=== PATIENT | male | born 1950 | race Caucasian/White ===

== ENCOUNTER 2021-06-19 14:59 | Inpatient (IN) ==
[2021-06-19 15:18] LABS: BORDETELLA PARAPERTUSSIS (PCR) NOT DETECTED (NOT DETECT); BORDETELLA PERTUSSIS (PCR) NOT DETECTED (NOT DETECT); CHLAMYDIA PNEUMONIAE (PCR) NOT DETECTED (NOT DETECT); CORONAVIRUS 229E (PCR) NOT DETECTED (NOT DETECT); CORONAVIRUS HKU1 (PCR) NOT DETECTED (NOT DETECT); CORONAVIRUS NL63 (PCR) NOT DETECTED (NOT DETECT); CORONAVIRUS OC43 (PCR) NOT DETECTED (NOT DETECT); HUMAN METAPNEUMOVIRUS (PCR) NOT DETECTED (NOT DETECT); HUMAN RHINOVIRUS/ENTEROV (PCR) NOT DETECTED (NOT DETECT); INFLUENZA B (PCR) NOT DETECTED (NOT DETECT); MYCOPLASMA PNEUMONIAE (PCR) NOT DETECTED (NOT DETECT); PARAINFLUENZA VIRUS 1 (PCR) NOT DETECTED (NOT DETECT); PARAINFLUENZA VIRUS 2 (PCR) NOT DETECTED (NOT DETECT); PARAINFLUENZA VIRUS 3 (PCR) NOT DETECTED (NOT DETECT); PARAINFLUENZA VIRUS 4 (PCR) NOT DETECTED (NOT DETECT); RESPIRATORY SYNCYTIAL V (PCR) NOT DETECTED (NOT DETECT); SARS_COV_2 (PCR) NOT DETECTED (NOT DETECT)
[2021-06-19 16:11] LABS: ADENOVIRUS (PCR) NOT DETECTED (NOT DETECT)
[2021-06-19] MEDS ORDERED: TYLENOL PO PRN (16:44)
[2021-06-19] MEDS ORDERED: ATROPINE SULFATE PFS IVP PRN (16:44)
[2021-06-19] MEDS ORDERED: NITROSTAT SL PRN (16:44)
[2021-06-19 16:48] VITALS: BMI 23.8
[2021-06-19] MEDS ORDERED: LANOXIN IVP ONE ×2 (16:53→19:00)
[2021-06-19] MEDS ORDERED: ULTRAM PO PRN (17:01)
[2021-06-19] MEDS ORDERED: CARDIZEM PO ONE (17:01)
[2021-06-19] MEDS ORDERED: LOPRESSOR PO ONE (17:02)
[2021-06-19 17:18] LABS: BASOPHILS % (AUTO) 0.4 % (0.0-3.0); EOSINOPHILS # (AUTO) 0.3 K/ul (0.0-0.7); EOSINOPHILS % (AUTO) 5.3 % (0.0-7.0); HEMATOCRIT 41.3 % (42.0-52.0); HEMOGLOBIN 13.9 g/dl (14.0-18.0); IMMATURE GRANULOCYTE % (AUTO) 0.4 % (0.0-5.0); LYMPHOCYTES # (AUTO) 1.6 K/uL (0.60-3.4); LYMPHOCYTES % (AUTO) 29.5 (10.0-50.0); MEAN CORPUSCULAR HEMOGLOBIN 31.4 pg (27.0-31.0); MEAN CORPUSCULAR HGB CONC 33.7 (31.8-35.4); MEAN CORPUSCULAR VOLUME 93.4 fl (80.0-94.0); MONOCYTES # (AUTO) 0.5 K/uL (0.4-2.0); MONOCYTES % (AUTO) 8.6 (0-10); NEUTROPHILS # (AUTO) 2.9 K/ul (2.0-6.9); NEUTROPHILS % (AUTO) 55.8 % (42.2-75.2); PLATELET COUNT 172 10^3/uL (140-440); RDW COEFFICIENT OF VARIATION 12.8 % (11.6-14.8); RED BLOOD COUNT 4.42 10^6/ul (4.70-6.10); WHITE BLOOD COUNT 5.26 K/ul (4.2-10.2)
[2021-06-19 17:24] LABS: ALANINE AMINOTRANSFERASE 13.4 U/L (0-50); ALBUMIN 4.72 g/dL (3.5-5.0); ALKALINE PHOSPHATASE 66.1 U/L (56-119); ASPARTATE AMINO TRANSFERASE 27.6 U/L (17-59); BILIRUBIN,TOTAL 0.44 mg/dL (0.2-1.3); BLOOD UREA NITROGEN 13.4 mg/dL (9-20); CALCIUM 9.1 mg/dL (8.4-10.2); CARBON DIOXIDE 27.3 mmol/L (22-30.0); CHLORIDE 104.5 mmol/L (98-107); CREATININE 1.09 mg/dL (0.60-1.10); GLUCOSE 94.8 mg/dL (74-106); POTASSIUM 4.14 mmol/L (3.5-5.1); SODIUM 139.9 mmol/L (134.5-145); TOTAL PROTEIN 7.54 g/dL (6.3-8.2)
[2021-06-19 17:33] LABS: CREATINE KINASE 51.6 U/L (55-170)
[2021-06-19 17:49] LABS: BILIRUBIN,URINE Negative (NEGATIVE); CLARITY,URINE Cloudy (CLEAR); COLOR,URINE Yellow (YELLOW); GLUCOSE, URINE (UA) Negative (NEGATIVE); KETONES,URINE Negative (NEGATIVE); LEUKOCYTE ESTERASE ,URINE Trace (NEGATIVE); NITRITE,URINE Negative (NEGATIVE); PROTEIN,URINE 1+ (NEGATIVE); URINE, BLOOD 2+ (NEGATIVE); UROBILINOGEN,URINE 0.2 (0.2)
[2021-06-19 17:56] LABS: BACTERIA,URINE TRACE (NOT PRESENT); MUCUS,URINE TRACE (NOT PRESENT); SQUAMOUS EPITHELIAL CELL,UR 0-2 (0-5); URINE RBC, MICROSCOPIC 30-50 (0-2)
[2021-06-19 17:57] LABS: TROPONIN I < 0.012 ng/ml (0.0000-0.120)
--- NOTE | 2021-06-19 20:08 | DI ---
EXAM: Chest one-view History: Short of breath Comparison: None. FINDINGS: Portable AP image obtained lordotic projection. Cardiac silhouette is normal size. There is linear and minimal interstitial density left lung base. No pleural fluid. No acute finding invo lving skeletal structures. Impression Cardiac silhouette normal size Linear and interstitial density the left lower lobe suggesting atelectasis and possible mild intersti tial pneumonia
[2021-06-19] MEDS: ATIVAN PO SCH (20:31)
[2021-06-19] MEDS: CARDIZEM PO SCH (20:31)
[2021-06-19] MEDS: ZOCOR PO SCH (20:31)
[2021-06-19] MEDS: ELIQUIS PO SCH (20:31)
[2021-06-19] MEDS: LOPRESSOR PO SCH (20:50)
[2021-06-20 01:34] LABS: CREATINE KINASE 41.2 U/L (55-170)
[2021-06-20 01:47] LABS: TROPONIN I < 0.012 ng/ml (0.0000-0.120)
[2021-06-20 04:53] LABS: BASOPHILS % (AUTO) 0.7 % (0.0-3.0); EOSINOPHILS # (AUTO) 0.3 K/ul (0.0-0.7); EOSINOPHILS % (AUTO) 7.7 % (0.0-7.0); HEMATOCRIT 38.8 % (42.0-52.0); HEMOGLOBIN 13.2 g/dl (14.0-18.0); IMMATURE GRANULOCYTE % (AUTO) 0.2 % (0.0-5.0); LYMPHOCYTES # (AUTO) 1.7 K/uL (0.60-3.4); LYMPHOCYTES % (AUTO) 39.3 (10.0-50.0); MEAN CORPUSCULAR HEMOGLOBIN 31.7 pg (27.0-31.0); MONOCYTES # (AUTO) 0.4 K/uL (0.4-2.0); NEUTROPHILS # (AUTO) 1.9 K/ul (2.0-6.9); NEUTROPHILS % (AUTO) 44.1 % (42.2-75.2); PLATELET COUNT 151 10^3/uL (140-440); RED BLOOD COUNT 4.17 10^6/ul (4.70-6.10)
[2021-06-20 05:16] LABS: ALANINE AMINOTRANSFERASE 13.3 U/L (0-50); ALBUMIN 3.93 g/dL (3.5-5.0); BILIRUBIN,TOTAL 0.39 mg/dL (0.2-1.3); BLOOD UREA NITROGEN 14.3 mg/dL (9-20); CALCIUM 8.65 mg/dL (8.4-10.2); CARBON DIOXIDE 22.9 mmol/L (22-30.0); CHLORIDE 108.2 mmol/L (98-107); CREATININE 0.99 mg/dL (0.60-1.10); POTASSIUM 4.24 mmol/L (3.5-5.1); SODIUM 139.2 mmol/L (134.5-145); TOTAL PROTEIN 6.44 g/dL (6.3-8.2)
[2021-06-20] MEDS: CARDIZEM PO SCH ×3 (09:12→20:30)
[2021-06-20] MEDS: LOPRESSOR PO SCH ×2 (09:12→20:29)
[2021-06-20] MEDS: OMNICEF PO SCH ×2 (09:12→20:30)
[2021-06-20] MEDS: OMEGA-3 FISH OIL PO SCH (09:17)
[2021-06-20] MEDS: ELIQUIS PO SCH ×2 (09:20→20:30)
--- NOTE | 2021-06-20 09:34 | PCM.PROG ---
Attending Provider: ATTENDING PROVIDER: Dr. DOLORES REYNOLDS DATE OF SERVICE: 06/20/21 SUBJECTIVE: This 71 year old /WHITE M was hospitalized 06/19/21 with atrial flutter/fib with RVR going on for several weeks symptomatic given Cardizem with no response and hospitalized. REVIEW OF SYSTEMS: CONSTITUTIONAL: No night sweats. No fatigue, malaise, lethargy. No fever or chills. HEENT: Eyes: No visual changes. No eye pain. No eye discharge. ENT: No runny nose. No epistaxis. No sinus pain. No odynophagia. No congestion. RESPIRATORY: No cough, no congestion. No hemoptysis. No shortness of breath. CARDIOVASCULAR: No angina symptoms. No CHF symptoms. No atypical chest pain for CAD. No palpitations. No orthopnea.. GASTROINTESTINAL: No abdominal pain. No nausea or vomiting. No diarrhea or constipation. No hematemesis. No hematochezia. GENITOURINARY: No urgency. No frequency. No dysuria. No hematuria. No obstructive symptoms. No discharge. No pain. No significant abnormal bleeding. MUSCULOSKELETAL: No musculoskeletal pain; no joint swelling. NEUROLOGICAL: Awake, alert, oriented to time, place and person. No headache. No neck pain. No syncope. No seizures. No dizziness. PSYCHIATRIC: Not anxious. No depression. No suicidal thoughts. No homicidal thoughts. SKIN: No rash. No lesions. No wounds. ENDOCRINE: No unexplained weight loss. No weight gain. HEMATOLOGIC/LYMPHATIC: No anemia. No purpura. No petechiae. No prolonged or excessive bleeding. No palpable lymph nodes. PHYSICAL EXAMINATION: GENERAL: The patient is awake, alert and oriented, lying/sitting in bed in no distress. VITAL SIGNS: Temperature 97.5 F, Pulse 73, Respiratory Rate 16, BP 105/68, Pulse Ox 93% HEENT: Head normocephalic, atraumatic. Eyes: Extraocular muscles are intact. Pupils are equal, round and reactive to light and accommodation. Ears: No lesions. Nose appeared normal. Throat: No exudate or erythema. NECK: Supple. No JVD, no carotid bruit. No lymphadenopathy or thyromegaly. LUNGS: Clear to auscultation. Percussion note normal. Chest symmetrical. HEART: S1, S2, no S3. No murmurs. No cyanosis or clubbing. No ascites. Pulses: Dorsalis pedis and posterior tibial pulses +1 to +2 both sides. ABDOMEN: Soft. Non-tender. Bowel sounds active. No CVA tenderness. No mass felt. EXTREMITIES: Pedal pulses +2 bilaterally. No edema. Full range of motion of all extremities, equal. NEUROLOGIC: No focal deficit. Cranial nerves II through XII are grossly intact. No headache, no double vision or headache. SKIN: Warm and dry. Intact. Turgor-normal. LYMPHATIC: No palpable lymph nodes/no lymphedema. MUSCULOSKELETAL: Normal joints with no swelling. Muscle tone is normal. LAB REVIEW: 06/20/21 04:45 06/20/21 04:45 06/20/21 04:45: Sodium 139.2, Potassium 4.24, Chloride 108.2 H, Carbon Dioxide 22.9, Anion Gap 12.34, BUN 14.3, Creatinine 0.99, Estimated GFR (MDRD) 74.00, BUN/Creatinine Ratio 14.44, Glucose 111.0 H, Calcium 8.65, Total Bilirubin 0.39, AST 24.0, ALT 13.3, Alkaline Phosphatase 58.0, Total Protein 6.44, Albumin 3.93, Globulin 2.51, Albumin/Globulin Ratio 1.56 06/20/21 04:45: WBC 4.40, RBC 4.17 L, Hgb 13.2 L, Hct 38.8 L, MCV 93.0, MCH 31.7 H, MCHC 34.0, RDW Coeff of Betsy 13.0, Plt Count 151, Immature Gran % (Auto) 0.2, Neut % (Auto) 44.1, Lymph % (Auto) 39.3, [place] % (Auto) 8.0, Eos % (Auto) 7.7 H, Baso % (Auto) 0.7, Neut # (Auto) 1.9 L, Lymph # (Auto) 1.7, [place] # (Auto) 0.4, Eos # (Auto) 0.3, Baso # (Auto) 0.0, Immature Gran # (Auto) 0.0 06/20/21 01:20: Total Creatine Kinase 41.2 L, Troponin I < 0.012 06/19/21 17:40: Urine Color Yellow, Urine Clarity Cloudy, Urine pH 7.0, Ur Specific [place] 1.025, Urine Protein 1+ H, Urine Glucose (UA) Negative, Urine Ketones Negative, Urine Blood 2+ H, Urine Nitrite Negative, Urine Bilirubin Negative, Urine Urobilinogen 0.2, Ur Leukocyte Esterase Trace H, Urine Microscopic RBC 30-50, Urine Microscopic WBC 5-10, Ur Squamous Epith Cells 0-2, Urine Bacteria Trace, Urine Mucus Trace 06/19/21 17:05: Total Creatine Kinase 51.6 L, Troponin I < 0.012 06/19/21 17:05: WBC 5.26, RBC 4.42 L, Hgb 13.9 L, Hct 41.3 L, MCV 93.4, MCH 31.4 H, MCHC 33.7, RDW Coeff of [place] 12.8, Plt Count 172, Immature Gran % (Auto) 0.4, Neut % (Auto) 55.8, Lymph % (Auto) 29.5, [place] % (Auto) 8.6, Eos % (Auto) 5.3, Baso % (Auto) 0.4, Neut # (Auto) 2.9, Lymph # (Auto) 1.6, [place] # (Auto) 0.5, Eos # (Auto) 0.3, Baso # (Auto) 0.0, Immature Gran # (Auto) 0.0 06/19/21 16:44: Sodium 139.9, Potassium 4.14, Chloride 104.5, Carbon Dioxide 27.3, Anion Gap 12.24, BUN 13.4, Creatinine 1.09, Estimated GFR (MDRD) 66.00, BUN/Creatinine Ratio 12.29, Glucose 94.8, Calcium 9.10, Total Bilirubin 0.44, AST 27.6, ALT 13.4, Alkaline Phosphatase 66.1, Total Protein 7.54, Albumin 4.72, Globulin 2.82, Albumin/Globulin Ratio 1.67 06/19/21 15:13: Adenovirus (PCR) Not detected, B. pertussis DNA (PCR) Not detected, B.parapertussis DNA PCR Not detected, C. pneumoniae DNA (PCR) Not detected, Coronavirus OC43 (PCR) Not detected, Coronavirus HKU1 (PCR) Not dete cted, Coronavirus 229E (PCR) Not detected, Coronavirus NL63 (PCR) Not detected, Human Metapneumovir PCR Not detected, Influenza Type A (PCR) Not detected, Influenza B (RT-PCR) Not detected, M. pneumoniae (PCR) Not detected, Parainfluenza 1 (PCR) Not detected, Parainfluenza 2 (PCR) Not detected, Para influenza 3 (PCR) Not detected, Parainfluenza 4 (PCR) Not detected, RSV (PCR) Not detected, Entero/Rhino (PCR) Not detected, SARS-CoV-2 (PCR) Not detected ASSESSMENT: Please see below. 1. Atrial flutter/fib with normal ventricular response. 2. UA abnormal, cultures grew gram negative rods. Will put on Omnicef 300 mg b.i.d. PLAN: 1. Echocardiogram to be done today. 2. Will begin on Omnicef 300 mg b.i.d. 3. Continue on Metoprolol 50 mg b.i.d. 4. Cardizem 60 mg t.i.d. 5. Given two doses of Lanoxin yesterday. 6. Eliquis also given. The side effects of Eliquis discussed to include possibility of GI bleeding, intracranial bleed and instructed not to take any nonsteroidal antiinflammatories. Plan and coordination of the patient's care discussed in the presence of Incident Response Specialist and nurse. EDUCATION: As above - education carried on the side effects of Eliquis. CONDITION: Stable SCRIBED BY: GRISEL GONZALEZ Sill Worker scribed while in presence of service performed by Dr. DOLORES REYNOLDS on 06/20/21 ([id number])
[2021-06-20] MEDS: ATIVAN PO SCH (20:30)
[2021-06-20] MEDS: ZOCOR PO SCH (20:30)
[2021-06-20] MEDS: TAMBOCOR PO SCH (21:21)
[2021-06-21 05:24] LABS: BASOPHILS % (AUTO) 0.4 % (0.0-3.0); EOSINOPHILS # (AUTO) 0.3 K/ul (0.0-0.7); EOSINOPHILS % (AUTO) 5.1 % (0.0-7.0); HEMATOCRIT 40.6 % (42.0-52.0); HEMOGLOBIN 13.7 g/dl (14.0-18.0); IMMATURE GRANULOCYTE % (AUTO) 0.2 % (0.0-5.0); LYMPHOCYTES # (AUTO) 1.7 K/uL (0.60-3.4); LYMPHOCYTES % (AUTO) 31.6 (10.0-50.0); MEAN CORPUSCULAR HEMOGLOBIN 31.1 pg (27.0-31.0); MEAN CORPUSCULAR HGB CONC 33.7 (31.8-35.4); MEAN CORPUSCULAR VOLUME 92.3 fl (80.0-94.0); MONOCYTES # (AUTO) 0.4 K/uL (0.4-2.0); MONOCYTES % (AUTO) 7.8 (0-10); NEUTROPHILS # (AUTO) 2.9 K/ul (2.0-6.9); NEUTROPHILS % (AUTO) 54.9 % (42.2-75.2); PLATELET COUNT 174 10^3/uL (140-440); RDW COEFFICIENT OF VARIATION 12.7 % (11.6-14.8); WHITE BLOOD COUNT 5.25 K/ul (4.2-10.2)
[2021-06-21 05:36] LABS: ALANINE AMINOTRANSFERASE 13.8 U/L (0-50); ALBUMIN 4.31 g/dL (3.5-5.0); ALKALINE PHOSPHATASE 62.8 U/L (56-119); ASPARTATE AMINO TRANSFERASE 24.3 U/L (17-59); BILIRUBIN,TOTAL 0.51 mg/dL (0.2-1.3); BLOOD UREA NITROGEN 16.9 mg/dL (9-20); CALCIUM 9.1 mg/dL (8.4-10.2); CHLORIDE 107.3 mmol/L (98-107); CREATININE 1.07 mg/dL (0.60-1.10); GLUCOSE 114.8 mg/dL (74-106); POTASSIUM 3.98 mmol/L (3.5-5.1); SODIUM 140.3 mmol/L (134.5-145); TOTAL PROTEIN 7.07 g/dL (6.3-8.2)
[2021-06-21] MEDS: CARDIZEM PO SCH (08:16)
[2021-06-21] MEDS: TAMBOCOR PO SCH (08:16)
[2021-06-21] MEDS: OMEGA-3 FISH OIL PO SCH (08:16)
[2021-06-21] MEDS: OMNICEF PO SCH (08:17)
[2021-06-21] MEDS: LOPRESSOR PO SCH (08:17)
[2021-06-21] MEDS: ELIQUIS PO SCH (08:17)
[2021-06-21] MEDS ORDERED: TAMBOCOR PO ONE (09:55)
[2021-06-21 10:11] VITALS: BP 107/74; TEMP 96.7
--- NOTE | 2021-06-23 09:42 | ECHO2D ---
Date of Exam: 06/21/2021 Ordering Physician: DR. DOLORES REYNOLDS Room #: 109 Reason for Echo: ATRIAL FIBRILLATION WITH RVR, HTN M-Mode Normal Adult Results LV Dimensions Normal Adult Results AoV Opening excursions >1.6 >1.6 LVEDD-base- 3.5-5.8 3.8 Ao root dimensions 2.0-3.7 3.4 LVESD-base- 3.1-4.6 L. Atrium dimensions 1.9-3.8 4.3 Post. Wall thickness 0.8-1.1 1.1 IV septum (thickness) 0.7-1.2 1.2 Post. Wall excursion 0.72-1.3 NORMAL Septal motion NORMAL Systolic motion R. Ventricular cavity 1.5-2.0 NORMAL LVEF 60% 58% Paradoxical septal wall motion NORMAL 2-D : 2-D M Mode Echocardiogram was performed using apical four chamber and left parasternal long and short axis views. Mitral, tricuspid and aortic valves appear to be normal. Contractility of the left ventricle seems to be normal, so is the cavity size. ENLARGED LEFT ATRIAL CAVITY SIZE. Aortic root appears to be normal. There is no pericardial effusion. There is no thrombus noted in the left ventricle or left atrial cavity. M-MODE: MV: NORMAL AV: NORMAL TV: NORMAL PV: CHAMBER SIZE: ENLARGED LEFT ATRIAL CAVITY WALL MOTION: NORMAL PERICARDIUM: NORMAL INTERPRETATION: 1. BORDERLINE LEFT VENTRICLE HYPERTROPHY WITH ENLARGED LEFT ATRIAL CAVITY 2. NORMAL LEFT VENTRICLE CONTRACTILITY AND LEFT VENTRICLE SIZE 3. NORMAL VALVES MTDD
--- NOTE | 2021-06-23 14:29 | PN ---
DATE OF SERVICE: 06/21/21 SUBJECTIVE: 71 year old white male hospitalized with atrial flutter with fast ventricular response. The patient was practically asymptomatic. The patient's condition is stable. REVIEW OF SYSTEMS: CONSTITUTIONAL: No night sweats. No fatigue, malaise, lethargy. No fever or chills. HEENT: Eyes: No visual changes. No eye pain. No eye discharge. ENT: No runny nose. No epistaxis. No sinus pain. No sore throat. No odynophagia. No congestion. RESPIRATORY: No cough, no congestion. No hemoptysis. No shortness of breath. CARDIOVASCULAR: No angina symptoms. No CHF symptoms. No atypical chest pain for CAD. No palpitations. No PND. No orthopnea. GASTROINTESTINAL: No abdominal pain. No nausea or vomiting. No diarrhea or constipation. No hematemesis. No hematochezia. GENITOURINARY: No urgency. No frequency. No dysuria. No hematuria. No obstructive symptoms. No discharge. No pain. No significant abnormal bleeding. MUSCULOSKELETAL: No musculoskeletal pain; no joint swelling. NEUROLOGICAL: No headache. No neck pain. No syncope. No seizures. No dizziness. PSYCHIATRIC: Not anxious. No depression. No suicidal thoughts. No homicidal thoughts. SKIN: No rash. No lesions. No wounds. ENDOCRINE: No unexplained weight loss. No weight gain. HEMATOLOGIC/LYMPHATIC: No anemia. No purpura. No petechiae. No prolonged or excessive bleeding. No palpable lymph nodes. PHYSICAL EXAMINATION: VITAL SIGNS: Temperature 97.6, pulse 90, respiratory rate 18, blood pressure 114/64 and pulse ox 98%. HEENT: Head normocephalic, atraumatic. Eyes: Extraocular muscles are intact. Pupils are equal, round and reactive to light and accommodation. Ears: No lesions. Nose appeared normal. Throat: No exudate or erythema. NECK: Supple. No JVD, no carotid bruit. No lymphadenopathy or thyromegaly. LUNGS: Clear to auscultation. Percussion note normal. Chest symmetrical. HEART: S1, S2, no S3. No murmurs. No cyanosis or clubbing. No ascites. Pulses: Dorsalis pedis and posterior tibial pulses +1 to +2 bilaterally. ABDOMEN: Soft. Nontender. Bowel sounds active. No CVA tenderness. No mass felt. EXTREMITIES: No edema. Full range of motion of all extremities, equal. NEUROLOGIC: No focal deficit. Cranial nerves II through XII are grossly intact. No headache. No double vision. SKIN: Not dry. Intact. Turgor - normal. LYMPHATIC: No palpable lymph nodes/no lymphedema. MUSCULOSKELETAL: Normal joints with no swelling. Muscle tone is normal. LABS: Hgb 13.7, hct 40, WBC 5,000 normal differential, creatinine 1, BUN 16, potassium 3 ASSESSMENT: 1. Atrial flutter/fibrillation with normal ventricular response PLAN: 1. Discharge the patient home 2. Metoprolol 3. Cardizem 4. Medication was added Flecainide. Extra dose was given. He is going to be on 50mg twice a day. 5. Advised to continue Apexiban, Lorazepam, Simvastatin and Tramadol. 6. The patient is going to be discharge home. Medications explained and atrial fibrillation with complications explained. 7. Eliquis side effects discussed with GI bleed and intracranial bleed. No nonsteroidal antiinflammatory 8. Instruction to come back and see me in 5-7 days. TIME SPENT: More than 30 minutes. Plan and coordination of the patient's care discussed in the presence of nurse. JESSICA
--- NOTE | 2021-06-23 14:38 | PN ---
06/19/21: Level 1 06/20/21: Intermediate 06/21/21: D as in discharge MTDD
--- NOTE | 2021-07-17 09:00 | DS ---
DATE OF SERVICE: 06/21/21 FINAL DIAGNOSIS: 1. Atrial flutter with rapid ventricular response, new onset 2. Hypertension 3. Dyslipidemia 4. Generalized osteoarthritis 5. Urinary tract infection gram negative rods. DISCHARGE INSTRUCTIONS: Discharge home today. Followup with Dr. Johnson/Jodie Rivero APRN/Kristina Barger APRN in office on June 24 at 9:30am. The patient is a full code. MEDICATIONS AT DISCHARGE: SIMVASTATIN 40MG BEDTIME LORAZEPAM 1MG AT BEDTIME TRAMADOL 50MG THREE TIMES A DAY NEEDED ELIQUIS 5MG TWICE A DAY NEW PRESCRIPTIONS: OMNICEF 300MG TWICE A DAY FOR 5 DAY CARDIZEM 60 TWICE A DAY METOPROLOL 50MG TWICE A DAY FLECAINIDE 50MG TWICE A DAY DIET INSTRUCTIONS: Cardiac ACTIVITY: As tolerated LABS: Hgb 13.7, hct 40, WBC 5,200 normal differential, creatinine 1, BUN 16, potassium 3.9, troponin negative. COVID 19 negative. GFR 66 cc per minute. HOSPITAL COURSE: 71 year old white male hospitalized with atrial flutter with rapid ventricular response. The patient had new onset flutter. The patient was given IV Lanoxin initially two doses, 0.25mg and started him on Cardizem later on Metoprolol was added. His heart rate slower within 24 hours 4:1 with 75 heart rate per minute. He was given Flecainide 2-3 dose 50mg twice a day 100mg extra given in the morning of discharge. Effects of all medications discussed including Apixaban which is intracranial and GI bleed. Advised not to take any nonsteroidal antiinflammatory. The patient's echo showed borderline LVH with enlarged LA cavity which was 4.2cm. Normal LV contractility was noted. The patient is CHADS VASC score 2. The patient needs to see me on Wednesday at 9:30am on followup. It is to be noted that the patient's valvular structures are normal. There was were evidence of thrombus or thrombi noted. TIME SPENT: More than 60 minutes. MTDD
== END 2021-06-21 13:30 | disposition home or self-care (01) | DRG 310 ==
LOC: LAB 14:59 → MEDSURG A 16:21
PROVIDERS: ADMIT Internal Medicine; ATTEND Internal Medicine
DX: I49.02 Ventricular flutter; Z20.822 Contact with and (suspected) exposure to COVID-19; Z79.899 Other long term (current) drug therapy; B96.89 Other specified bacterial agents as the cause of diseases classified elsewhere; M19.90 Unspecified osteoarthritis, unspecified site; Z74.1 Need for assistance with personal care; E78.5 Hyperlipidemia, unspecified; I10 Essential (primary) hypertension; Z51.81 Encounter for therapeutic drug level monitoring

== ENCOUNTER 2022-07-12 19:47 | Inpatient (IN) ==
[~2022-07-12 19:47] MED LIST: ASPIRIN RC ONE
[2022-07-12] MEDS ORDERED: SODIUM CHLORIDE 1,000 ML IV STA ×2 (19:59)
[2022-07-12 20:03] VITALS: BMI 26.3
--- NOTE | 2022-07-12 20:15 | ED.PDOC ---
General ED Provider: Dr. EMERY PINTO DO Chief Complaint: Stroke Stated Complaint: Patient is a 72 yo M here for trouble word finding and slurred speech Alert and oriented to self and location only patient arrives with saying he is talking funny Patient has L facial droop with smiling He can answer in 3-4 word sentences for simple questions but has word finding difficulty and trouble speaking it is slurred Blood sugar 109 BP 150/95 Code stroke called Patient has a hx of a fib on warfarin, Currently being treated with radiation for prostate cancer last session this week, pending session tomorrow with Dr. Kaur NIHSS 5 for facial droop L, missing questions, aphasia/dysarthria-mild reports last normal 1600 today, reports this has happened before but resolved years ago and they never sought care No falls or injuries No seizure like activity No fevers or chills or dysuria or diarrhea, No toxidromes No vertigo No psychiatric disturbance Time Seen by Provider: 07/12/22 19:48 Information Source: Patient and Family Primary Care Provider: DOLORES JOHNSON MD Nursing and Triage Documentation Reviewed and Agree: Yes Does patient meet sepsis criteria?: No System Inflammatory Response Syndrome: Not Applicable Sepsis Protocol: For patient's 13 years and over: Temp is 96.8 and below OR 101 and greater Pulse >90 BPM Resp >20/minute Acutely Altered Mental Status Are patient's symptoms suggestive of a new infection, such as: -Pneumonia -Skin, Soft Tissue -Endocarditis -UTI -Bone, Joint Infection -Implantable Device -Acute Abdominal Infection -Wound Infection -Meningitis -Blood Stream Catheter Infection -Unknown Review of Systems Review Of Systems Constitutional: Denies Chills or Fever Eyes: Denies Blindness, Blurred vision or Vision change Ears, Nose, Mouth, Throat: Denies Ear pain, Ear discharge or Nose pain Respiratory: Denies Cough or Short of air Cardiac: Denies Chest pain or Irregular heart rate GI: Denies Abdomen distended or Abdominal pain : Denies Burning, Dysuria or Discharge Musculoskeletal: Denies Back pain or Joint pain Skin: Denies Bruising or Rash Neurological: Reports Weakness and Other (facial droop L and word findings problems); Denies Anxiety or Depressed Endocrine: Denies Excessive sweating or Flushing Hematologic/Lymphatic: Denies Anemia or Easy bleeding All Other Systems: Reviewed and Negative [facility] Medical History Afib I48.91 - Unspecified atrial fibrillation (ICD-10) CKD (chronic kidney disease) stage 3, GFR 30-59 ml/min N18.30 - Chronic kidney disease, stage 3 unspecified (ICD-10) Dyslipidemia E78.5 - Hyperlipidemia, unspecified (ICD-10) Hernia K46.9 - Unspecified abdominal hernia without obstruction or gangrene (ICD- 10) HTN (hypertension) I10 - Essential (primary) hypertension (ICD-10) 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 E13.610 - Other specified diabetes mellitus with diabetic neuropathic arthropathy (ICD-10) Neuropathic arthropathy M14.60 - Charcot's joint, unspecified site (ICD-10) Osteoarthritis M19.90 - Unspecified osteoarthritis, unspecified site (ICD-10) Prostate cancer C61 - Malignant neoplasm of prostate (ICD-10) Vitamin B12 deficiency E53.8 - Deficiency of other specified B group vitamins (ICD-10) Family History FATHER Brain cancer Mother Pancreatic cancer Social History Smoking and tobacco status: Former smoker Smokeless tobacco user: chewing tobacco How long ago did patient quit smoking: quit 5 years ago Alcohol intake: former Details: quit drinking 20 years ago Substance use type: does not use Special prakash needs: No Agree to transfusion: Yes Adopted: No Caregiver/support person: No Foster care: No Household members: spouse and children Housing: house Marital status: M Lives independently: Yes Number of children: 3 service: No [employer]: No Current occupational status: retired Pets and animals: Yes History of recent travel: No Sexually active: No Do you think of yourself as: straight/heterosexual Current gender identity: male Seatbelt use: always Drives intoxicated or rides with 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 Water heater temperature set < 120 degrees: Yes Working smoke detector in home: Yes Fire extinguisher in home: Yes Carbon monoxide detector in home: No Firearms in home: Yes Surgical History H/O bilateral cataract extraction Z98.41 - Cataract extraction status, right eye (ICD-10) Z98.42 - Cataract extraction status, left eye (ICD-10) H/O cardiac radiofrequency ablation Z98.890 - Other specified postprocedural states (ICD-10) H/O inguinal hernia repair Z98.890 - Other specified postprocedural states (ICD-10) Z87.19 - Personal history of other diseases of the digestive system (ICD-10) Physical Exam Physical Exam Appearance: Reports Well-appearing and Well-nourished Ill-appearing: None Pain Distress: None Eyes: Reports HINA and EOMI ENT: Reports Ears normal and Nose normal Neck: Supple Respiratory: Reports Airway patent and Breath sounds clear; Denies Wheezes Cardiovascular: Reports Pulses normal and Irregular rhythm GI/: Reports Soft and Nontender Musculoskeletal: Reports Normal strength and ROM intact Skin: Reports Warm and Dry Neurological: Reports Sensation intact, Motor intact, Reflexes intact, Cranial nerves intact (L facial droop), Alert, Oriented (oriented to self and locaiton only) and Other (mild dysarthria and aphasia) Psychiatric: Reports Affect appropriate and Mood appropriate Interpretation EKG Interpretation Time of EKG #1: 20:08 Rate: Normal Rhythm: Sinus Ectopy: None [place]: [place] ST Segment: Normal Interpretation: No stemi no brugadda no qt prolongation EKG Interpretation By: ED Physician Critical Care Note Critical Care Note Total Critical Care Time (mins): 0 Course Course 07/12/22 20:15 07/12/22 20:15 Orders, Labs, Meds: Lab Review 07/12/22 07/12/22 07/12/22 20:15 21:15 21:24 WBC 3.93 L RBC 4.14 L Hgb 13.6 L Hct 38.9 L MCV 94.0 MCH 32.9 H MCHC 35.0 RDW Coeff of Betsy 13.8 Plt Count 146 Immature Gran % (Auto) 0.3 Neut % (Auto) 65.8 Lymph % (Auto) 15.8 Maries % (Auto) 10.4 H Eos % (Auto) 7.4 H Baso % (Auto) 0.3 Neut # (Auto) 2.6 Lymph # (Auto) 0.6 Maries # (Auto) 0.4 Eos # (Auto) 0.3 Baso # (Auto) 0.0 Immature Gran # (Auto) 0.0 PT 26.2 H INR 2.64 APTT 35.0 Sodium 139.4 Potassium 3.95 Chloride 106.6 Carbon Dioxide 28.1 Anion Gap 8.65 BUN 10.9 Creatinine 1.00 Estimated GFR (MDRD) 73.00 BUN/Creatinine Ratio 10.90 Glucose 112.0 H Calcium 8.18 L Total Bilirubin 0.50 AST 34.0 ALT 21.9 Alkaline Phosphatase 58.0 Total Protein 7.15 Albumin 4.27 Globulin 2.88 Albumin/Globulin Ratio 1.48 Urine Color Yellow Urine Clarity Clear Urine pH 6.5 Ur Specific Pine 1.020 Urine Protein Trace H Urine Glucose (UA) Negative Urine Ketones Negative Urine Blood Negative Urine Nitrite Negative Urine Bilirubin Negative Urine Urobilinogen 0.2 Ur Leukocyte Esterase Negative Ur Squamous Epith Cells Not present Urine Mucus 1+ Influ A Molecular Assay Negative by naat Influ B Molecular Assay Negative by naat SARS CoV-2 RNA Rapid HARDIK Negative Orders Category Date Time Status ADMIT PATIENT INPATIENT .TO [facility] (MONITORED BED) ADMISSION 07/12/22 22:13 Active ECHOCARDIOGRAM 2D-M MODE Routine CARDIO 07/12/22 08:00 Ordered EKG-(ED ONLY) Stat CARDIO 07/12/22 19:59 Completed ACTIVITY .Up With Assistance CARE 07/12/22 22:09 Active ACTIVITY .Up in Chair CARE 07/12/22 22:09 Active BLOOD GLUCOSE MONITORING (MED/SURG) ACCUCHECK Q6H CARE 07/12/22 22:09 Active INTAKE & OUTPUT Q8HR CARE 07/12/22 22:09 Active IP: INSERT SALINE LOCK ONCE CARE 07/12/22 22:09 Active NPO REMINDER: IMAGING ONCE CARE 07/12/22 20:16 Completed NPO REMINDER: LAB TEST ONCE CARE 07/12/22 22:11 Active TELEMETRY MONITORING TELE CARE 07/12/22 22:09 Active TELEMETRY MONITORING TELE CARE 07/12/22 22:13 Active VITAL SIGNS Q4HR CARE 07/12/22 22:08 Active VTE PREVENTION .SCD 24 Hours CARE 07/12/22 22:09 Active NPO [NOTHING BY MOUTH] DIETARY 07/13/22 Breakfast Ordered ED ACCUCHECK ASSESSMENT .ONCE EMERGENCY 07/12/22 19:59 Active ED APPLY O2 .ONCE EMERGENCY 07/12/22 19:59 Active ED IV/MEDIPORT/POWERPORT .ONCE EMERGENCY 07/12/22 19:59 Active CBC W/ AUTO DIFF DAILY@0600 LAB 07/13/22 06:00 Ordered CBC W/ AUTO DIFF DAILY@0600 LAB 07/14/22 06:00 Ordered CBC W/ AUTO DIFF Stat LAB 07/12/22 20:15 Completed COMPREHENSIVE METABOLIC PANEL DAILY@0600 LAB 07/13/22 06:00 Ordered COMPREHENSIVE METABOLIC PANEL DAILY@0600 LAB 07/14/22 06:00 Ordered COMPREHENSIVE METABOLIC PANEL Stat LAB 07/12/22 20:15 Completed COVID [SARS COV-2 RNA RAPID HARDIK] Stat LAB 07/12/22 21:24 Completed FLU A & B MOLECULAR [FLU A/B MOLECULAR] Stat LAB 07/12/22 21:24 Completed HEMOGLOBIN A1C Routine LAB 07/13/22 06:00 Ordered LIPID PANEL Timed LAB 07/13/22 06:00 Ordered PARTIAL THROMBOPLASTIN TIME Stat LAB 07/12/22 20:15 Completed PT WITH INR DAILY@0600 LAB 07/13/22 06:00 Ordered PT WITH INR DAILY@0600 LAB 07/14/22 06:00 Ordered PT WITH INR Stat LAB 07/12/22 20:15 Completed UA [URINALYSIS C & S IF INDICATED] Stat LAB 07/12/22 21:15 Completed 0.9 % Sodium Chloride [Saline Flush] MEDS 07/12/22 19:59 Active 1 syr IVF PRN PRN Ondansetron HCl/Pf [Zofran 4 mg/2 ml] MEDS 07/12/22 21:13 Discontinued 4 mg IVP ONCE STA Sodium Chloride 0.9% [Sodium Chloride] 1,000 ml MEDS 07/12/22 19:59 Active IV 30 mls/hr Sodium Chloride 0.9% [Sodium Chloride] 1,000 ml MEDS 07/12/22 19:59 Discontinued IV 50 mls/hr RESUSCITATION STATUS Routine OTHERS 07/12/22 22:[address] HEAD W/O CONTRAST Stat RADS 07/12/22 19:59 Completed CTA ANGIO HEAD Stat RADS 07/12/22 20:15 Completed CTA ANGIO NECK Stat RADS 07/12/22 20:15 Completed MRI BRAIN W/O CONTRAST Routine RADS 07/13/22 07:00 Ordered Medications Generic Name Dose Route Start Last Admin Trade Name Freq PRN Reason Stop Dose Admin Sodium Chloride 1,000 mls @ 30 mls/hr 07/12/22 19:59 07/12/22 20:21 Sodium Chloride IV 07/14/22 05:18 30 mls/hr .[id number] STA Administration Ondansetron HCl 4 mg 07/12/22 22:20 Ondansetron Hcl/Pf 4 Mg/2 Ml Sdv IVP Q6H PRN Nausea / Vomiting Sodium Chloride 1 syr 07/12/22 19:59 0.9% Sodium Chloride 10 Ml Disp.Syrin IVF PRN PRN To flush IV Discontinued Medications Generic Name Dose Route Start Last Admin Trade Name Freq PRN Reason Stop Dose Admin Sodium Chloride 1,000 mls @ 50 mls/hr 07/12/22 19:59 07/12/22 20:21 Sodium Chloride IV 07/13/22 15:58 Not Given .Q20H STA Ondansetron HCl 4 mg 07/12/22 21:13 07/12/22 21:20 Ondansetron Hcl/Pf 4 Mg/2 Ml Sdv IVP 07/12/22 21:14 4 mg ONCE STA Administration Vital Signs: Temp Pulse Resp BP Pulse Ox 07/12/22 21:34 80 18 146/77 H 100 07/12/22 19:49 98.8 F 77 16 150/93 H [address] head negative for bleed, CTA head and Neck ordered Dr. Virgen Benjamin Neur paged-no intervention now, would get CTA's, no need for transfer but will accept later if needed. Dr. Miki Johnson amenable to admission here with hospitalist Team, Margarita Hernandez PAC, Dr Umair Johnson accept admisison appreciate support, will place formal orders when CTA's negative Patietn anticoagulated will hold aspirin at this time. Patient improving, speaking more clearly. I discussed options of staying vs transfer to primary stroke center, prefers no transfer and does not like going to [place] facilities, agrees. We exp[lained risks benefits and alternatives to admission Vs transfer MDM: Patient is a 72 yo M here for trouble speaking patient afebrile and vitally stable Hx from and patient chart reivew by me Exam concerning for L facial droop and dysarthria/dysphasia 3+ labs and 3+ images reviewed by me Consults [facility] Dr. New, Hospitalist MARIE Hernandez NIHSS5 improved to NIHSS 3 Risks benefits and alternatives discussed family declines transfer to Primary stroke center, requests to stay here We discussed findings and plan, family amenable to plan WDX: Stroke like symptoms, L facial droop dysphasia, dysarthria acute condition high complexity DDX: I considered sepsis, overdose, ICH but these are less likely SDOH: Patient insured with PCP follow up Patient admitted stable Plan for US and MRI studies in the AM Discharge Plan Discharge Patient Disposition: PLACED OBSERVATION Discharge Problem: Dysarthria, Dysphasia, Stroke-like symptoms, Facial droop Did you review [place] WEIGHT GUESSER for ALL controlled substances?: Not Applicable ED Provider: EMERY PINTO Condition: Good Physician Progress Note: []
--- NOTE | 2022-07-12 20:19 | CT ---
EXAM: CT OF THE HEAD WITHOUT CONTRAST History: Altered mental status. Technique: Multiplanar CT images through the head were obtained without the administration of IV con trast FINDINGS: Minimal mucosal thickening of the bilateral ethmoid air cells. Mastoid air cells are gaensh r. No acute calvarial abnormalities. Intracranially there is mild atrophy. No midline shift and no hydrocephalus. No acute intracranial hemorrhage or abnormal extraaxial fluid collections. Scattered periventricular and subcortical white matter hypodensities. Nonspecific coarse calcifications are seen within the right cerebellum. Impression: 1. No acute intracranial hemorrhage. 2. Coarse calcifications within the right cerebellum could indicate an underlying arterial venous ma lformation or be related to old infection or old trauma. 3. Chronic small vessel ischemic disease. Critical results communicated to Dr. Ochoa 8:15 p.m. 07/12/[address] scans are performed using dose optimization techniques as appropriate to the performed exam an d include at least one of the following: Automated exposure control, adjustment of the mA and/or kV according t o size, and the use of iterative reconstruction technique.
[2022-07-12 20:26] LABS: BASOPHILS % (AUTO) 0.3 % (0.0-3.0); EOSINOPHILS # (AUTO) 0.3 K/ul (0.0-0.7); EOSINOPHILS % (AUTO) 7.4 % (0.0-7.0); HEMATOCRIT 38.9 % (42.0-52.0); HEMOGLOBIN 13.6 g/dl (14.0-18.0); IMMATURE GRANULOCYTE % (AUTO) 0.3 % (0.0-5.0); LYMPHOCYTES # (AUTO) 0.6 K/uL (0.60-3.4); LYMPHOCYTES % (AUTO) 15.8 (10.0-50.0); MEAN CORPUSCULAR HEMOGLOBIN 32.9 pg (27.0-31.0); MONOCYTES # (AUTO) 0.4 K/uL (0.4-2.0); MONOCYTES % (AUTO) 10.4 (0-10); NEUTROPHILS # (AUTO) 2.6 K/ul (2.0-6.9); NEUTROPHILS % (AUTO) 65.8 % (42.2-75.2); PLATELET COUNT 146 10^3/uL (140-440); RDW COEFFICIENT OF VARIATION 13.8 % (11.6-14.8); RED BLOOD COUNT 4.14 10^6/ul (4.70-6.10); WHITE BLOOD COUNT 3.93 K/ul (4.2-10.2)
[2022-07-12 20:38] LABS: ALANINE AMINOTRANSFERASE 21.9 U/L (0-50); ALBUMIN 4.27 g/dL (3.5-5.0); BILIRUBIN,TOTAL 0.5 mg/dL (0.2-1.3); BLOOD UREA NITROGEN 10.9 mg/dL (9-20); CALCIUM 8.18 mg/dL (8.4-10.2); CARBON DIOXIDE 28.1 mmol/L (22-30.0); CHLORIDE 106.6 mmol/L (98-107); POTASSIUM 3.95 mmol/L (3.5-5.1); SODIUM 139.4 mmol/L (134.5-145); TOTAL PROTEIN 7.15 g/dL (6.3-8.2)
[2022-07-12 20:40] LABS: PROTHROMBIN TIME 26.2 SEC (9.3-11.0)
[2022-07-12] MEDS ORDERED: ZOFRAN 4 MG/2 ML IVP STA (21:13)
[2022-07-12 21:30] LABS: BILIRUBIN,URINE Negative (NEGATIVE); CLARITY,URINE Clear (CLEAR); COLOR,URINE Yellow (YELLOW); GLUCOSE, URINE (UA) Negative (NEGATIVE); KETONES,URINE Negative (NEGATIVE); LEUKOCYTE ESTERASE ,URINE Negative (NEGATIVE); NITRITE,URINE Negative (NEGATIVE); PH,URINE 6.5 (5-9); PROTEIN,URINE Trace (NEGATIVE); URINE, BLOOD Negative (NEGATIVE); UROBILINOGEN,URINE 0.2 (0.2)
[2022-07-12 21:32] LABS: MUCUS,URINE 1+ (NOT PRESENT); SQUAMOUS EPITHELIAL CELL,UR NOT PRESENT (0-5)
[2022-07-12 21:51] LABS: MOLECULAR FLU A NEGATIVE BY NAAT (NEGATIVE); MOLECULAR FLU B NEGATIVE BY NAAT (NEGATIVE)
--- NOTE | 2022-07-12 21:51 | CT ---
EXAM: CTA OF THE NECK WITH AND WITHOUT CONTRAST History: Stroke-like symptoms Comparison: CTA of the head 07/12/2022 Technique: Multiplanar CT images through the neck were obtained with and without the administration of IV contrast. MIP images and 3-D reconstructions were also acquired. Findings: The visualized upper lungs are clear. No acute osseous abnormalities. Moderate to severe disc disease at C5-6 and C6-7. Mild mucosal thickening of the bilateral ethmoid air cells. The bilateral subclavian arteries are patent without significant narrowing. The bilateral common car otid arteries are patent without significant narrowing. The bilateral internal carotid arteries are patent without significant narrowing. The bilateral internal carotid arteries are tortuous. No aneu rysms and no dissection. The bilateral vertebral arteries are patent without significant narrowing. Impression: Normal arterial study of the neck All CT scans are performed using dose optimization techniques as appropriate to the performed exam an d include at least one of the following: Automated exposure control, adjustment of the mA and/or kV according t o size, and the use of iterative reconstruction technique.
--- NOTE | 2022-07-12 21:59 | CT ---
EXAM: CT ANGIOGRAM HEAD HISTORY: The stroke COMPARISON: Correlation with CT head from earlier the same day. FINDINGS: CT angiogram images of the head were obtained following the administration of Omnipaque IV contrast. Multiplanar and 3-D/MIP reformatted images. No significant stenosis or occlusion involving the anterior posterior intracranial circulation. No large intracranial aneurysm. Again noted are calcifications in the left cerebellar hemisphere. IMPRESSION: No significant stenosis or occlusion of the intracranial circulation. No large intracranial aneurysm. All CT scans are performed using dose optimization techniques as appropriate to the performed exam an d include at least one of the following: Automated exposure control, adjustment of the mA and/or kV according t o size, and the use of iterative reconstruction technique.
[2022-07-12 22:00] LABS: SARS COV-2 RNA RAPID NAAT NEGATIVE (NEGATIVE)
[2022-07-12] MEDS ORDERED: ZOFRAN 4 MG/2 ML IVP PRN (22:20)
[2022-07-12] MEDS ORDERED: TYLENOL RC PRN (23:27)
[2022-07-12] MEDS ORDERED: ASPIRIN RC ONE (23:27)
[2022-07-13 05:12] LABS: BASOPHILS % (AUTO) 0.2 % (0.0-3.0); EOSINOPHILS # (AUTO) 0.1 K/ul (0.0-0.7); EOSINOPHILS % (AUTO) 1.6 % (0.0-7.0); HEMATOCRIT 35.9 % (42.0-52.0); HEMOGLOBIN 12.8 g/dl (14.0-18.0); IMMATURE GRANULOCYTE % (AUTO) 0.4 % (0.0-5.0); LYMPHOCYTES # (AUTO) 0.6 K/uL (0.60-3.4); LYMPHOCYTES % (AUTO) 11.7 (10.0-50.0); MEAN CORPUSCULAR HEMOGLOBIN 33.2 pg (27.0-31.0); MEAN CORPUSCULAR HGB CONC 35.7 (31.8-35.4); MEAN CORPUSCULAR VOLUME 93.2 fl (80.0-94.0); MONOCYTES # (AUTO) 0.4 K/uL (0.4-2.0); MONOCYTES % (AUTO) 9.1 (0-10); NEUTROPHILS # (AUTO) 3.7 K/ul (2.0-6.9); PLATELET COUNT 132 10^3/uL (140-440); RDW COEFFICIENT OF VARIATION 13.6 % (11.6-14.8); RED BLOOD COUNT 3.85 10^6/ul (4.70-6.10); WHITE BLOOD COUNT 4.86 K/ul (4.2-10.2)
[2022-07-13 05:26] LABS: ALANINE AMINOTRANSFERASE 19.3 U/L (0-50); ALBUMIN 3.82 g/dL (3.5-5.0); ASPARTATE AMINO TRANSFERASE 26.8 U/L (17-59); BILIRUBIN,TOTAL 0.59 mg/dL (0.2-1.3); BLOOD UREA NITROGEN 10.1 mg/dL (9-20); CALCIUM 8.02 mg/dL (8.4-10.2); CARBON DIOXIDE 26.5 mmol/L (22-30.0); CHLORIDE 106.4 mmol/L (98-107); CHOLESTEROL 140.2 mg/dL (0-200); CREATININE 0.96 mg/dL (0.60-1.10); GLUCOSE 113.2 mg/dL (74-106); HDL CHOLESTEROL 35.9 mg/dL (35-60); POTASSIUM 3.92 mmol/L (3.5-5.1); SODIUM 137.1 mmol/L (134.5-145); TOTAL PROTEIN 6.49 g/dL (6.3-8.2); TRIGLYCERIDES 123.8 mg/dL (0-150)
[2022-07-13 05:29] LABS: PROTHROMBIN TIME 27.4 SEC (9.3-11.0)
[2022-07-13 05:53] LABS: ANISOCYTOSIS 2+ (NOT PRESENT); HYPOCHROMASIA 1+ (NOT PRESENT)
[2022-07-13] MEDS ORDERED: REGLAN IVP PRN (08:17)
--- NOTE | 2022-07-13 09:51 | PCM ---
Date of Service Date Seen by Provider: 07/13/22 Time Seen by Provider: 08:50 Admit Day/Time Admission Date: 07/13/22 Reason for Admission Chief Complaint: STROKE LIKE SYMPTOMS Hospital Provider Hospital Provider: ISABELA SHANNON, [facility] [place] Primary Care Physician Primary Care Physician: DOLORES JOHNSON MD History of Present Illness History of Present Illness: 72 yo male presented to the ER with complaints of facial droop and slurred speech. Patient states that yesterday he had worked outside majority of the day and then sometime in the afternoon approximately [id number] he began experiencing some numbness/tingling in his right hand and lower arm and had difficulties articulating. Denies any vision changes, headache, difficulty walking or weakness, chest pain, SOB, or other symptoms. NIH on arrival to the ER was 5. Currently, NIH is 2. He is able to walk without difficulty. Denies any numbness in the R arm at this time. Still reports difficulty articulating and family reports speech is still slurred at this time. Denies any history of CVA/TIA in the past. Has history of Afib and had an ablation at least 6 months ago. Takes coumadin and metoprolol. Case Discussed With Case Discussed With: Patient's case was discussed with the ER Physicians, Dr. MCINTYRE Medical History (Updated 07/13/22 @ 09:46 by ISABELA SHANNON) Afib I48.91 - Unspecified atrial fibrillation (ICD-10) Cataract H26.9 - Unspecified cataract (ICD-10) Cervical radiculopathy M54.12 - Radiculopathy, cervical region (ICD-10) Chronic anticoagulation Z79.01 - halfway (current) use of anticoagulants (ICD-10) CKD (chronic kidney disease) stage 3, GFR 30-59 ml/min N18.30 - Chronic kidney disease, stage 3 unspecified (ICD-10) Current smoker F17.200 - Nicotine dependence, unspecified, uncomplicated (ICD-10) Dyslipidemia E78.5 - Hyperlipidemia, unspecified (ICD-10) Erectile dysfunction N52.9 - Male erectile dysfunction, unspecified (ICD-10) Hernia K46.9 - Unspecified abdominal hernia without obstruction or gangrene (ICD- 10) Hernia K46.9 - Unspecified abdominal hernia without obstruction or gangrene (ICD- 10) Hip bursitis M70.70 - Other bursitis of hip, unspecified hip (ICD-10) HTN (hypertension) I10 - Essential (primary) hypertension (ICD-10) Hyperglycemia R73.9 - Hyperglycemia, unspecified (ICD-10) 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 E13.610 - Other specified diabetes mellitus with diabetic neuropathic arthropathy (ICD-10) Neuropathic arthropathy M14.60 - Charcot's joint, unspecified site (ICD-10) Osteoarthritis M19.90 - Unspecified osteoarthritis, unspecified site (ICD-10) Prostate cancer C61 - Malignant neoplasm of prostate (ICD-10) Vitamin B12 deficiency E53.8 - Deficiency of other specified B group vitamins (ICD-10) Surgical History (Updated 07/13/22 @ 09:46 by ISABELA SHANNON) H/O bilateral cataract extraction Z98.41 - Cataract extraction status, right eye (ICD-10) Z98.42 - Cataract extraction status, left eye (ICD-10) H/O cardiac radiofrequency ablation Z98.890 - Other specified postprocedural states (ICD-10) H/O inguinal hernia repair Z98.890 - Other specified postprocedural states (ICD-10) Z87.19 - Personal history of other diseases of the digestive system (ICD-10) Family History FATHER Brain cancer Mother Pancreatic cancer Social History Smoking and tobacco status: Former smoker Smokeless tobacco user: chewing tobacco How long ago did patient quit smoking: quit 5 years ago Alcohol intake: former Details: quit drinking 20 years ago Substance use type: does not use Special prakash needs: No Agree to transfusion: Yes Adopted: No Caregiver/support person: No Foster care: No Household members: spouse and children Housing: house Marital status: M Lives independently: Yes Number of children: 3 service: No prison: No Current occupational status: retired Pets and animals: Yes History of recent travel: No Sexually active: No Do you think of yourself as: straight/heterosexual Current gender identity: male Seatbelt use: always Drives intoxicated or rides with intoxicated 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: No Water heater temperature set < 120 degrees: Yes Working smoke detector in home: Yes Fire extinguisher in home: Yes Carbon monoxide detector in home: No Firearms in home: Yes Allergies Allergies Allergy/AdvReac Type Severity Reaction Status Date / Time atorvastatin [From Lipitor] AdvReac muscle Verified 07/12/22 20:05 aches Current Medications Home Medications tramadol 50 mg tablet 50 mg PO TID PRN pain #90 tabs 04/30/22 [Rx Confirmed 07/12/22 Last Taken 07/12/22 16:00] garlic 1,000 mg capsule 1,000 mg PO QDAY 05/19/22 [History Confirmed 07/12/22 Last Taken 07/11/22] metoprolol tartrate 50 mg tablet (Lopressor) 25 mg PO BID 05/19/22 [History Confirmed 07/12/22 Last Taken 07/12/22] omega-3 fatty acids-fish oil 360 mg-1,200 mg capsule (Fish Oil) 2 cap PO BID 05/19/22 [History Confirmed 07/12/22 Last Taken 07/11/22] simvastatin 40 mg tablet 40 mg PO BEDTIME #90 tabs 06/04/22 [Rx Confirmed 07/13/22 Last Taken 07/12/22] lorazepam 1 mg tablet (Ativan) 1 mg PO BEDTIME #30 tabs 06/15/22 [Rx Confirmed 07/13/22 Last Taken 07/12/22] sildenafil 50 mg tablet 50 mg PO QDAY PRN sexual activity #30 tabs 06/16/22 [Rx Confirmed 07/12/22 Last Taken 06/26/22] warfarin 1 mg tablet 1 mg PO QDAY #30 tabs 06/16/22 [Rx Confirmed 07/12/22 Last Taken 07/12/22] warfarin 6 mg tablet 6 mg PO .QD #30 tabs 06/16/22 [Rx Confirmed 07/12/22 Last Taken 07/12/22] Home Acetaminophen (Acetaminophen 650 Mg Supp.Rect) 650 mg RC Q6HR PRN PRN Reason: Pain Sodium Chloride (Sodium Chloride) 1,000 mls @ 30 mls/hr IV .[id number] STA Stop: 07/14/22 05:18 Last Admin: 07/12/22 20:21 Dose: 30 mls/hr Metoclopramide HCl (Metoclopramide Hcl 10 Mg/2 Ml) 5 mg IVP Q6H PRN PRN Reason: Nausea / Vomiting Last Admin: 07/13/22 08:24 Dose: 5 mg Ondansetron HCl (Ondansetron Hcl/Pf 4 Mg/2 Ml Sdv) 4 mg IVP Q6H PRN PRN Reason: Nausea / Vomiting Last Admin: 07/13/22 02:46 Dose: 4 mg Sodium Chloride (0.9% Sodium Chloride 10 Ml Disp.Syrin) 1 syr IVF PRN PRN PRN Reason: To flush IV Discontinued Medications Aspirin (Aspirin 300 Mg Supp.Rect) 300 mg RC ONCE ONE Stop: 07/12/22 23:28 Last Admin: 07/13/22 00:01 Dose: 300 mg Aspirin (Aspirin 300 Mg Supp.Rect) 300 mg RC ONCE ONE Stop: 07/12/22 00:16 Last Admin: 07/13/22 00:10 Dose: Not Given Sodium Chloride (Sodium Chloride) 1,000 mls @ 50 mls/hr IV .Q20H STA Stop: 07/13/22 15:58 Last Admin: 07/12/22 20:21 Dose: Not Given Ondansetron HCl (Ondansetron Hcl/Pf 4 Mg/2 Ml Sdv) 4 mg IVP ONCE STA Stop: 07/12/22 21:14 Last Admin: 07/12/22 21:20 Dose: 4 mg Review of Systems Constitutional: Reports No symptoms Head: Reports Normocephalic and Atraumatic Eyes: Reports No symptoms Ears: Reports No symptoms Nose: Reports No symptoms Throat: Reports Difficulty Swallowing Cardiovascular: Reports No symptoms Respiratory: Reports No symptoms Gastrointestinal: Reports No symptoms Genitourinary: Reports No Symptoms Musculoskeletal: Reports No symptoms Endocrine: Reports No symptoms Hematology: Reports No symptoms Immunology: Reports No symptoms Neurological: Reports Speech difficulty Psychiatric: Reports No symptoms Physical examination Most Recent Vital Signs: Most Recent Vital Signs Temperature 98.4 F 07/13/22 05:36 Temperature Source Oral 07/13/22 05:36 Temperature Source Infrared 07/12/22 19:49 Pulse Rate 77 07/13/22 05:36 Respiratory Rate 16 07/13/22 05:36 Blood Pressure 120/69 07/13/22 07:00 Blood Pressure Mean 81 07/13/22 05:36 Blood Pressure Left Arm 147/84 07/12/22 23:05 Blood Pressure Location Left Arm 07/13/22 05:36 Blood Pressure Position Supine 07/13/22 05:36 O2 Sat by Pulse Oximetry 98 07/13/22 06:00 Oxygen Delivery Method Nasal Cannula 07/13/22 08:00 Oxygen Flow Rate 2 07/13/22 08:00 Height 5 ft 10 in 07/12/22 23:05 Weight 183 lb 5 oz 07/12/22 23:05 Telemetry Type Bedside Monitor 07/13/22 07:00 Telemetry Monitoring Continues 07/13/22 07:00 Telemetry Heart Rate 75 07/13/22 07:00 Telemetry SPO2 96 07/13/22 07:00 EKG TN Interval 0.13 07/13/22 07:00 EKG QRS Interval 0.08 07/13/22 07:00 Telemetry Strip Reading NSR 07/13/22 07:00 Appearance: Positive Well-appearing, Well-nourished, No Apparent Distress and Alert and Oriented x3 Skin: Positive Warm, Good Turgor and Good Color HEENT: Positive Normocephalic, Atraumatic and PERRLA Neck: Positive Supple and Midline Trachea Chest/Lungs: Positive Symmetrical With Equal Breath Sounds, Clear to Auscultation Bilaterally and Good Air Movement all 4 Lung [place] Heart: Positive RRR, Pulses Normal, No S3 Auscultated and No S4 Auscultated GI/: Positive Soft, Nontender, Bowel Sounds Normal, No Distention and No Organomegaly Musculoskeletal: Positive Normal Gait and Station Extremities: Positive Intact Peripheral Pulses, Stable Joints Without Laxity and Good ROM in All Joints Neurological: Positive Sensation Intact, Motor intact, Reflexes Intact, Alert, Oriented, Muscle Strength 5/5 in Upper and Lower Extremities Bilaterally and Other (NIH 3) Psychiatric: Positive Oriented x4, Appropriate Mood, Appropriate Affect, Intact Memory, Good Short-Term Recall, Good Long-Term Recall, Normal Judgement and Normal Insight Labs This Visit Labs This Visit: Labs This Visit 07/12/22 07/12/22 07/12/22 20:15 21:15 21:24 WBC 3.93 L RBC 4.14 L Hgb 13.6 L Hct 38.9 L MCV 94.0 MCH 32.9 H MCHC 35.0 RDW Coeff of Betsy 13.8 Plt Count 146 Immature Gran % (Auto) 0.3 Neut % (Auto) 65.8 Lymph % (Auto) 15.8 [place] % (Auto) 10.4 H Eos % (Auto) 7.4 H Baso % (Auto) 0.3 Neut # (Auto) 2.6 Lymph # (Auto) 0.6 [place] # (Auto) 0.4 Eos # (Auto) 0.3 Baso # (Auto) 0.0 Immature Gran # (Auto) 0.0 Hypochromasia Anisocytosis PT 26.2 H INR 2.64 APTT 35.0 Sodium 139.4 Potassium 3.95 Chloride 106.6 Carbon Dioxide 28.1 Anion Gap 8.65 BUN 10.9 Creatinine 1.00 Estimated GFR (MDRD) 73.00 BUN/Creatinine Ratio 10.90 Glucose 112.0 H Hemoglobin A1c Calcium 8.18 L Total Bilirubin 0.50 AST 34.0 ALT 21.9 Alkaline Phosphatase 58.0 Total Protein 7.15 Albumin 4.27 Globulin 2.88 Albumin/Globulin Ratio 1.48 Triglycerides Cholesterol LDL Cholesterol, Calc VLDL Cholesterol HDL Cholesterol Cholesterol/HDL Ratio Urine Color Yellow Urine Clarity Clear Urine pH 6.5 Ur Specific [place] 1.020 Urine Protein Trace H Urine Glucose (UA) Negative Urine Ketones Negative Urine Blood Negative Urine Nitrite Negative Urine Bilirubin Negative Urine Urobilinogen 0.2 Ur Leukocyte Esterase Negative Ur Squamous Epith Cells Not present Urine Mucus 1+ Influ A Molecular Assay Negative by naat Influ B Molecular Assay Negative by naat SARS CoV-2 RNA Rapid HARDIK Negative 07/13/22 05:06 WBC 4.86 RBC 3.85 L Hgb 12.8 L Hct 35.9 L MCV 93.2 MCH 33.2 H MCHC 35.7 H RDW Coeff of [place] 13.6 Plt Count 132 L Immature Gran % (Auto) 0.4 Neut % (Auto) 77.0 H Lymph % (Auto) 11.7 [place] % (Auto) 9.1 Eos % (Auto) 1.6 Baso % (Auto) 0.2 Neut # (Auto) 3.7 Lymph # (Auto) 0.6 [place] # (Auto) 0.4 Eos # (Auto) 0.1 Baso # (Auto) 0.0 Immature Gran # (Auto) 0.0 Hypochromasia 1+ Anisocytosis 2+ PT 27.4 H INR 2.76 APTT Sodium 137.1 Potassium 3.92 Chloride 106.4 Carbon Dioxide 26.5 Anion Gap 8.12 BUN 10.1 Creatinine 0.96 Estimated GFR (MDRD) 77.00 BUN/Creatinine Ratio 10.52 Glucose 113.2 H Hemoglobin A1c 5.60 Calcium 8.02 L Total Bilirubin 0.59 AST 26.8 ALT 19.3 Alkaline Phosphatase 51.0 L Total Protein 6.49 Albumin 3.82 Globulin 2.67 Albumin/Globulin Ratio 1.43 Triglycerides 123.8 Cholesterol 140.2 LDL Cholesterol, Calc 80 VLDL Cholesterol 25 HDL Cholesterol 35.9 Cholesterol/HDL Ratio 3.9 L Urine Color Urine Clarity Urine pH Ur Specific [place] Urine Protein Urine Glucose (UA) Urine Ketones Urine Blood Urine Nitrite Urine Bilirubin Urine Urobilinogen Ur Leukocyte Esterase Ur Squamous Epith Cells Urine Mucus Influ A Molecular Assay Influ B Molecular Assay SARS CoV-2 RNA Rapid HARDIK Imaging Imagining: EXAM: CT OF THE HEAD WITHOUT CONTRAST FINDINGS: Minimal mucosal thickening of the bilateral ethmoid air cells. Mastoid air cells are clear. No acute calvarial abnormalities. Intracranially there is mild atrophy. No midline shift and no hydrocephalus. No acute intracranial hemorrhage or abnormal extraaxial fluid collections. Scattered periventricular and subcortical white matter hypodensities. Nonspecific coarse calcifications are seen within the right cerebellum. Impression: 1. No acute intracranial hemorrhage. 2. Coarse calcifications within the right cerebellum could indicate an underlying arterial venous malformation or be related to old infection or old trauma. 3. Chronic small vessel ischemic disease. EXAM: CT ANGIOGRAM HEAD FINDINGS: CT angiogram images of the head were obtained following the administration of Omnipaque IV contrast. Multiplanar and 3-D/MIP reformatted images. No significant stenosis or occlusion involving the anterior posterior intracranial circulation. No large intracranial aneurysm. Again noted are calcifications in the left cerebellar hemisphere. IMPRESSION: No significant stenosis or occlusion of the intracranial circulation. No large intracranial aneurysm. EXAM: CTA OF THE NECK WITH AND WITHOUT CONTRAST Findings: The visualized upper lungs are clear. No acute osseous abnormalities. Moderate to severe disc disease at C5-6 and C6-7. Mild mucosal thickening of the bilateral ethmoid air cells. The bilateral subclavian arteries are patent without significant narrowing. The bilateral common carotid arteries are patent without significant narrowing. The bilateral internal carotid arteries are patent without significant narrowing. The bilateral internal carotid arteries are tortuous. No aneurysms and no dissection. The bilateral vertebral arteries are patent without significant narrowing. Impression: Normal arterial study of the neck Review Statement Review Statement: I have independently reviewed and interpreted the labs/EKGs/imaging that were ordered by the ER provider. I have reviewed all outside records that are available currently in our EMR including imaging/notes/labs from previous visits. Plan Plan: 1. CVA/TIA r/o - CT head and CTA head and neck negative, checking echo and MRI of head, aspirin daily, telemetry, speech/swallow eval, PT/OT eval, lipid panel normal, restart home coumadin and simvastatin following swallow eval if able 2. Atrial Fibrillation - chronic, rate controlled, continue home medications 3. Hyperlipidemia - chronic, stable, continue home medications 4. Prostate Cancer - currently undergoing radiation 3 times a week, follows with Dr. Serrano Pelican DVT Prophylaxis: SCDs, plan to restart coumadin following swallow eval Time Spent: Greater than 80 minutes spent with patient, 50% of the time spent with this patient was devoted to counseling and coordination of care. Advanced Care Plannin minutes spent discussing advance care planning. Disposition: Full Code Admit to Med/surg Inpatient Discussed Plan of Care with Dr. Fer Johnson. Medications Medication Orders: Medications Ordered Category Date Time Status 0.9 % Sodium Chloride [Saline Flush] MEDS 07/12/22 19:59 Active 1 syr IVF PRN PRN Acetaminophen [Tylenol] MEDS 07/12/22 23:27 Active 650 mg RC Q6HR PRN Metoclopramide HCl [Reglan] MEDS 07/13/22 08:17 Active 5 mg IVP Q6H PRN Ondansetron HCl/Pf [Zofran 4 mg/2 ml] MEDS 07/12/22 22:20 Active 4 mg IVP Q6H PRN Sodium Chloride 0.9% [Sodium Chloride] 1,000 ml MEDS 07/12/22 19:59 Active IV 30 mls/hr
--- NOTE | 2022-07-13 10:15 | MRI ---
EXAMINATION: MAGNETIC RESONANCE IMAGING (MRI) OF THE BRAIN WITHOUT CONTRAST HISTORY: Possible stroke. TECHNIQUE: Multiplanar multi-weighted MRI of the brain and brainstem was performed without intravenou s contrast using the general brain protocol. Contrast: None. COMPARISON: CTA head 07/12/2022 FINDINGS: Parenchyma: No acute infarct. No acute hemorrhage. No mass effect or midline shift. Craniocervical junction is normal. Chronic Change: Patchy and confluent foci of T2/FLAIR hyperintensity in the periventricular and subco rtical white matter and yan, which are nonspecific, however likely represent moderate to severe debt collection specialist júnior microvascular ischemia. Small foci of susceptibility artifact in the right medial cerebellar hem isphere likely due to remote microhemorrhages. Mild to moderate generalized cortical volume loss. C hronic lacunar infarcts in the bilateral lentiform nuclei. Ventricles/Extra-axial Spaces: Ventricles are normal in size and morphology for age. Normal basal ci sterns. Small right retrocerebellar arachnoid cyst. Sella/Skull Base: Pituitary and sella are normal on noncontrast exam. Paranasal Sinuses/Mastoids: Mild multifocal paranasal sinus mucosal thickening. Mastoid air cells ar e clear. Orbits: Left artificial lens replacement. Vasculature: Normal flow voids in the carotid arteries and basilar artery. Calvarium/Scalp: Normal marrow. No soft tissue swelling. Limited Cervical Spine: No significant abnormality. IMPRESSION: No acute intracranial abnormality. Moderate to severe chronic microvascular ischemic white matter changes.
[2022-07-13 10:37] VITALS: BP 107/68; RESP 14; TEMP 97.6
--- NOTE | 2022-07-13 10:53 | RS.PTINEVL ---
Subjective Patient information Date of Evaluation: 07/13/22 Date of Arrival on Unit: 07/12/22 Admitted From:: Home Diagnosis: dysphagia, dysarthria, possible CVA Usual Living Arrangement: With Spouse Living Arrangement Comments: DAUGHTER AND GRANDCHILD LIVE IN THE BASEMENT. Home Environment: House, Stairs (few) and Rail Medical History: Hypertension, Diabetes, Arthritis and Cancer (prostate CA currently undergoing radiation treatment) Medical History Comments:: neuropathy, AFib, CKD, hernia, charcot foot, Surgical History Comments:: inguinal hernia repair, cardiac ablation Medications: see chart Subjective Information/ Patient Comments:: pt states that he is feeling ok, just hungry. (awaiting swallow study) Daughters present. pt states that he had a little n/t in L hand during the MRI however has resolved now. 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 Current Level of Function: Partially Dependent Current Equipment Used at Home: None Interventions Objective Patient Orientation: Person, Place, Time and Situation Current Interventions: IV's, Oxygen and Telemetry Observation: SCD's BLE Range of Motion ROM Right Upper Extremity AROM: WFL's Left Upper Extremity AROM: WFL's Right Lower Extremity AROM: WFL's Left Lower Extremity AROM: WFL's Muscle Strength Muscle Strength Right Upper Extremity: Mild Weakness (grossly 4+/5) Left Upper Extremity: Mild Weakness (grossly 4+/5) Right Lower Extremity: Mild Weakness (hip flex 4+/5, knee flex/ext 4+/5, ankle DF/PF 4/5) Comments:: hip flex 4+/5, knee flex/ext 4+/5, ankle DF/PF 4+/5 Sensation Sensation Right Upper Extremity: Intact/Normal Left Upper Extremity: Intact/Normal Right Lower Extremity: Intact/Normal Left Lower Extremity: Intact/Normal Palpation Palpation Findings: None/Normal Coordination Tests Bilateral: Finger to Nose: Normal/Intact Heel to [place]: Normal/Intact Balance Sitting Balance and Reactions Static Sitting Balance: Good Dynamic Sitting Balance: Good Standing Balance and Reactions Static Standing Balance: Good (good-) Dynamic Standing Balance: Fair Comments Balance Assessment Comments: pt states his head still feels funny when he walks. Tinetti score: 20/28 consistent with moderate risk of falls. Functional Mobility Bed Mobility Rolling R/L: Independent Scooting: Independent Supine to Sit: Independent Transfers Sit to Stand: CGA Stand to Sit: CGA Safety Awareness Safety Awareness: Good MILAD INDEX SCORE: n/a Ambulation Ambulation Assistive Device Used: Gait belt Orthotic/Prosthetic Device: No Distance: 100ft Assistance needed with Ambulation: CGA Gait Deviations: Wide Based gait and Deviates from path Ambulation Comments: pt with increased lat sway and occasional deviation from path. RLE externally rotated Factors Affecting Ambulation: Decreased Balance, Weakness, Decreased Coordination, Decreased Safety and Limited Endurance Treatment time Units charged Gait trainin Time with patient Length of Evaluation: 19 Total treatment time: 29 Patient Education Education Patient Education: Activity Modification and Education of Plan of Care Teaching Recipient: Patient and Family Teaching Methods: Discussion Assessment Assessment Problem List:: Decreased level of function, Requires training/education, Decreased safety/Risk of falls and Weakness Rehab Potential: Good Further Therapy Indicated?: Yes Candidate for Swing Bed for Therapy Services?: Feel pt may not be a candidate for swing bed for therapy due to high functional level. Evaluation Complexity: HISTORY: Medium, EXAM OF BODY SYSTEMS: Medium, CLINICAL PRESENTATION: Medium and CLINICAL DECISION MAKING: Medium Patient's Goal(s): Be able to eat and go home. Short Term Goals GOAL #1: pt transfer sit to /from stand SBA to independently Goal to be met by: 07/14/22 GOAL #2: pt amb 140ft without AD with no LOB SBA Goal to be met by: 07/14/22 GOAL #3: Improve BLE strength 5/5 Goal to be met by: 07/14/22 GOAL #4: Improve dyn stand balance as noted by tinetti score of Goal to be met by: 07/14/22 Senior Care Goals GOAL #1: pt amb functional household distances independently. Goal to be met by: 07/16/22 GOAL #2: Improve tinetti score Goal to be met by: 07/16/22 GOAL #3: pt independent with all transfers. Goal to be met by: 07/16/22 Plan Plan of Care: Therapeutic EX, Neuromuscular Re-Educ, Therapeutic Activity and Self-Care/Home Management Frequency of Treatment: 1-2 X day, as tolerated Duration of Treatment: 3-4 days Anticipated Discharge Destination: Home Treatment Diagnosis (ICD 10 Codes): impaired balance R 26.81 difficulty walking R 26.2 weakness M62.81 Has the Physician been added for Co-signature?: Yes
[2022-07-13] MEDS ORDERED: ULTRAM PO PRN (11:49)
[2022-07-13] MEDS ORDERED: COUMADIN PO SCH (12:00)
[2022-07-13] MEDS ORDERED: NON-FORMULARY MEDICATION (Garlic 1,000 mg capsule) PO SCH (12:00)
--- NOTE | 2022-07-13 13:08 | RS.BEDDYS ---
Subjective Date of Evaluation: 07/13/22 Diagnosis: CVA Current Level of Function: This is a 72 year old male whom resides with his and daughter. He was independent in the home environment. He has no significant history with swallowing deficits. The patient will be assessed at the bedside to determine safer and least restrictive diet and risks for aspiration/penetration with PO intake. Current Diet: NPO Current Subjective/complaints:: The patient was upright in his recliner chair upon NURSING STAFF DEVELOPMENT COORDINATOR entry. He had four family members in the room during the evaluation. The patient answered simple 'wh' questions regarding his appetite, PO diet, and current swallow function. The patient denied hx of swallow deficits with PO intake or medications. The patient reported that he was independent and could 'elysia my four year old granddaughter around." He continued to discuss his working history and reported he retired one year ago. The patient also reported he was hungry and has a good appetite. Medical History Comments:: No significant medical hx. Pt reported he is receiving radiation for his prostate. Hx Home Medications: Refer to medications for complete current list. Patient's Goals: To maintain hydration and nutrition with safer and least restrictive diet. General Information General Patient Orientation: Person, Place, Time and Situation Ability to Follow Directions: Good (Some repetition required; potential hearing loss interfered.) Is Patient able to Repeat Directions?: Yes (needs a prompt.) Oral Expression Ability: Mild Impairment (minimal slower habitual rate of speech; word finding deficits; facial droop on left) Voice Voice Quality: Normal Oral-Facial Assessment Face Facial Symmetry: Left Droop (At rest no droop; with movement droop on left; pt reports sensation) Facial Movement: Controlled (Can move corners of mouth on command; does not move voluntarily.) Dental/Labial Teeth Characteristics: Intact/Normal and Missing (molars) Lip Protrusion: Normal Lip Retraction: Normal Puff Cheeks: Reduced Strength (left cheek does not fully expand. More difficulty with maintaining air inside left cheek.) Lingual Protrusion: Normal (minimal deviation of tip ) Retraction: Normal Tip Lateralization: Discoordination (could not approximate to left corner) Repeated Tip Lateralization: Discoordination Tip Elevation: Discoordination (Required visual cue for approximation to alveolar ridge; head recruitment to move tongue to ridge.) Repeated Tip Elevation: Normal (less difficulty with cueing to maintain head posture.) Comments: Pt denies lingual numbness. Palate and Pharynx Soft Palate Description: Normal Color Hard Palate Description: Normal Color Food Presentation Solids Food Presented: Pureed (3 trials of puree 1/2, full, heaping spoon.) Behaviors/Comments: Pt had no oral holding or oral phase deficits. Pt demonstrated timely swallow initiation. No overt s/s of aspiration at the bedside. No wet vocal quality. Food Presented: Chopped (2 trials including 1/2 tsp and full tsp.) Behaviors/Comments: NURSING STAFF DEVELOPMENT COORDINATOR presented trials. Pt demonstrated functional rotary chew pattern. No oral phase deficits observed. Pt had no overt s/s of aspiration. No wet vocal quality. Food Presented: Mechanical Soft (3 trials presented. bite size and large bite size via NURSING STAFF DEVELOPMENT COORDINATOR; 1 habitual bite size via pt administration.) Behaviors/Comments: The patient demonstrated functional oral phase with coordination and formation of bolus prior to swallow initiation. Minimal residuals on lingual surface; rinsed with liquid wash. No overt s/s of aspiration. No report of food sticking in laryngeal carriage. Food Presented: Regular (2 trials presented via NURSING STAFF DEVELOPMENT COORDINATOR 1/4 cracker and 1/2 cracker. ) Behaviors/Comments: The patient had minimal prolongation of mastication due to dryness with presented texture. The patient demonstrated functional bolus formation and coordination. No report of sensation of food stuck. Pt had no overt s/s of aspiration. Liquids Liquid Presented: Thin (via 1/2 tsp, full tsp, open cup, straw, and consecutive sips.) Behaviors/Comments: The patient had timely swallow initiation. Audible swallow response was observed. Pt had laryngeal burping post swallows and reports no hx of GERD. 3 oz water test completed and pt had no overt s/s of aspiration. 1x delayed throat clear was audible without wet laryngeal quality. Liquid Presented: [place] (1/2 tsp; full tsp; via straw; open cup.) Behaviors/Comments: Pt had minimal delay in swallow initiation secondary to texture. No audible swallow response. Pt had no overt s/s of aspiration. Recommendations: Dysphagia Evaluation Dietary Recommendations: Regular and Thin Comments:: No restrictions Dysphagia Swallow Precautions/Strategies: Sitting Upright (90 deg) and Alternate Liquids/Solids (Due to pt's dry mouth and occasional food sticking on lateral lingual surface.) Comments:: Utilize all safe swallow and aspiration precautions. Summary Dysphagia Evaluation Summary: The patient presented with minimal to no dysphagia at the bedside. The oral phase was minimally impaired due to left side facial droop and left lingual coordination. However, bolus formation was not impaired with presented trials. The pharyngeal phase presented without deficits and LE was functional. The patient has risks for fatigue and reduced endurance with full meals. The NURSING STAFF DEVELOPMENT COORDINATOR recommends the patient trial regular diet texture with thin liquids. Medications administered whole with sips of thin liquids. NURSING STAFF DEVELOPMENT COORDINATOR will complete swallow treatment to educate pt on safe swallow and aspiration precautions, address left side facial weakness with exercise, and incorporate lingual coordination exercises. Pt recommended for 3x/week. Further Therapy Indicated?: Yes Comments: Address lingual coordination and left side droop Rehab Potential: Good Functional Reporting G Codes: n/a Severity Impairment Rationale: n/a Short Term Goals Goal #1: Pt to utilize safe swallow and aspiration precautions 100% of PO intake. Goal to be met by: 07/15/22 Goal #2: Pt tolerate regular diet and thin liquids w/o overt s/s of aspiration. Goal to be met by: 07/15/22 Goal #3: Pt verb/demo OMEs to improve left side facial sensation/coordination Goal to be met by: 07/15/22 Resource Specialist Teacher Goals Goal #1: maintain adequate hydration and nutrition on safer &least restrictive diet Plan Duration of Treatment: 1 Week Frequency of Treatment: 2-3x/week Anticipated Discharge Destination: Home Treatment Code (1) Facial droop: Code(s): R29.810 - Facial weakness (2) Stroke-like symptoms: Code(s): R29.90 - Unspecified symptoms and signs involving the nervous system (3) Dysphagia: Code(s): R13.10 - Dysphagia, unspecified
--- NOTE | 2022-07-13 13:21 | DCSUM ---
Admission Date Admission Date: 07/12/22 Discharge Date Discharge Date: 07/13/22 Admission Diagnosis Admission Diagnosis: CVA R/O Discharge Diagnosis Discharge Diagnosis: TIA Hospital Provider Hospital Provider: ISABELA SHANNON, [facility] [place] Primary Care Physician Primary Care Physician: ODLORES JOHNSON MD Summary of History and Physical Summary of History and Physical: 72 yo male presented to the ER with complaints of facial droop and slurred speech. Patient states that yesterday he had worked outside majority of the day and then sometime in the afternoon approximately [id number] he began experiencing some numbness/tingling in his right hand and lower arm and had difficulties articulating. Denies any vision changes, headache, difficulty walking or weakness, chest pain, SOB, or other symptoms. NIH on arrival to the ER was 5. Currently, NIH is 2. He is able to walk without difficulty. Denies any numbness in the R arm at this time. Still reports difficulty articulating and family reports speech is still slurred at this time. Denies any history of CVA/TIA in the past. Has history of Afib and had an ablation at least 6 months ago. Takes coumadin and metoprolol. Hospital Course Subjective: Symptoms improved. No events overnight. PT/OT/ST evals completed and reports no need for further therapy. Echo and MRI negative. Dr. Victoriano Johnson recommended patient to wear holter monitor x 2 days. Appearance: Pleasant, No Apparent Distress, Alert, Well-appearing and Well- nourished HEENT: MMM, Supple and No JVD CVS: No Murmur, No Rubs, No Gallop and No JVD Abdomen: Soft, Non-Tender and No Distention Respiratory: No Dyspnea Extremities: No Edema and No Calf Tenderness Vital Signs: Most Recent Vital Signs Temperature 97.6 F 07/13/22 10:00 Temperature Source Temporal Artery Scan 07/13/22 10:00 Temperature Source Infrared 07/12/22 19:49 Pulse Rate 75 07/13/22 10:00 Respiratory Rate 14 07/13/22 10:00 Blood Pressure 107/68 07/13/22 10:00 Blood Pressure Mean 81 07/13/22 10:00 Blood Pressure Left Arm 147/84 07/12/22 23:05 Blood Pressure Location Left Arm 07/13/22 10:00 Blood Pressure Position Sitting 07/13/22 10:00 O2 Sat by Pulse Oximetry 100 07/13/22 10:00 Oxygen Delivery Method Nasal Cannula 07/13/22 10:00 Oxygen Flow Rate 2 07/13/22 10:00 Height 5 ft 10 in 07/12/22 23:05 Weight 183 lb 5 oz 07/12/22 23:05 Telemetry Type Bedside Monitor 07/13/22 07:00 Telemetry Monitoring Continues 07/13/22 07:00 Telemetry Heart Rate 75 07/13/22 07:00 Telemetry SPO2 96 07/13/22 07:00 EKG OK Interval 0.13 07/13/22 07:00 EKG QRS Interval 0.08 07/13/22 07:00 Telemetry Strip Reading NSR 07/13/22 07:00 Lab Results Last 24 Hours: 07/13/22 07/12/22 07/12/22 05:06 21:24 21:15 WBC 4.86 RBC 3.85 L Hgb 12.8 L Hct 35.9 L MCV 93.2 MCH 33.2 H MCHC 35.7 H RDW Coeff of Betsy 13.6 Plt Count 132 L Immature Gran % (Auto) 0.4 Neut % (Auto) 77.0 H Lymph % (Auto) 11.7 [place] % (Auto) 9.1 Eos % (Auto) 1.6 Baso % (Auto) 0.2 Neut # (Auto) 3.7 Lymph # (Auto) 0.6 [place] # (Auto) 0.4 Eos # (Auto) 0.1 Baso # (Auto) 0.0 Immature Gran # (Auto) 0.0 Hypochromasia 1+ Anisocytosis 2+ PT 27.4 H INR 2.76 APTT Sodium 137.1 Potassium 3.92 Chloride 106.4 Carbon Dioxide 26.5 Anion Gap 8.12 BUN 10.1 Creatinine 0.96 Estimated GFR (MDRD) 77.00 BUN/Creatinine Ratio 10.52 Glucose 113.2 H Hemoglobin A1c 5.60 Calcium 8.02 L Total Bilirubin 0.59 AST 26.8 ALT 19.3 Alkaline Phosphatase 51.0 L Total Protein 6.49 Albumin 3.82 Globulin 2.67 Albumin/Globulin Ratio 1.43 Triglycerides 123.8 Cholesterol 140.2 LDL Cholesterol, Calc 80 VLDL Cholesterol 25 HDL Cholesterol 35.9 Cholesterol/HDL Ratio 3.9 L Urine Color Yellow Urine Clarity Clear Urine pH 6.5 Ur Specific [place] 1.020 Urine Protein Trace H Urine Glucose (UA) Negative Urine Ketones Negative Urine Blood Negative Urine Nitrite Negative Urine Bilirubin Negative Urine Urobilinogen 0.2 Ur Leukocyte Esterase Negative Ur Squamous Epith Cells Not present Urine Mucus 1+ Influ A Molecular Assay Negative by naat Influ B Molecular Assay Negative by naat SARS CoV-2 RNA Rapid HARDIK Negative 07/12/22 20:15 WBC 3.93 L RBC 4.14 L Hgb 13.6 L Hct 38.9 L MCV 94.0 MCH 32.9 H MCHC 35.0 RDW Coeff of Betsy 13.8 Plt Count 146 Immature Gran % (Auto) 0.3 Neut % (Auto) 65.8 Lymph % (Auto) 15.8 [place] % (Auto) 10.4 H Eos % (Auto) 7.4 H Baso % (Auto) 0.3 Neut # (Auto) 2.6 Lymph # (Auto) 0.6 [place] # (Auto) 0.4 Eos # (Auto) 0.3 Baso # (Auto) 0.0 Immature Gran # (Auto) 0.0 Hypochromasia Anisocytosis PT 26.2 H INR 2.64 APTT 35.0 Sodium 139.4 Potassium 3.95 Chloride 106.6 Carbon Dioxide 28.1 Anion Gap 8.65 BUN 10.9 Creatinine 1.00 Estimated GFR (MDRD) 73.00 BUN/Creatinine Ratio 10.90 Glucose 112.0 H Hemoglobin A1c Calcium 8.18 L Total Bilirubin 0.50 AST 34.0 ALT 21.9 Alkaline Phosphatase 58.0 Total Protein 7.15 Albumin 4.27 Globulin 2.88 Albumin/Globulin Ratio 1.48 Triglycerides Cholesterol LDL Cholesterol, Calc VLDL Cholesterol HDL Cholesterol Cholesterol/HDL Ratio Urine Color Urine Clarity Urine pH Ur Specific [place] Urine Protein Urine Glucose (UA) Urine Ketones Urine Blood Urine Nitrite Urine Bilirubin Urine Urobilinogen Ur Leukocyte Esterase Ur Squamous Epith Cells Urine Mucus Influ A Molecular Assay Influ B Molecular Assay SARS CoV-2 RNA Rapid HARDIK Discharge Instructions Discharge Planning: Discharge Planning > 40 minutes Activity as tolerated. Cardiac diet Wear holter monitor for the next 48 hours. Follow-up with Dr. Alex maharaj. Medications Given This Visit: Medications Generic Name Dose Route Start Last Admin Trade Name Freq PRN Reason Stop Dose Admin Acetaminophen 650 mg 07/12/22 23:27 Acetaminophen 650 Mg Supp.Rect RC Q6HR PRN Pain Aspirin 81 mg 07/14/22 08:30 Aspirin 81 Mg Tab.Chew PO DAILYWM [facility] Fish Oil 2,000 mg 07/13/22 21:00 Jackson-3/Dha/Epa/Fish Oil 1,000 Mg Capsule PO BID [facility] Sodium Chloride 1,000 mls @ 30 mls/hr 07/12/22 19:59 07/12/22 20:21 Sodium Chloride IV 07/14/22 05:18 30 mls/hr .[id number] STA Administration Lorazepam 1 mg 07/13/22 21:00 Lorazepam 1 Mg Tablet PO BEDTIME [facility] Metoclopramide HCl 5 mg 07/13/22 08:17 07/13/22 08:24 Metoclopramide Hcl 10 Mg/2 Ml IVP 5 mg Q6H PRN Administration Nausea / Vomiting Metoprolol Tartrate 25 mg 07/13/22 21:00 Metoprolol Tartrate 25 Mg Tablet PO BID [facility] Non-Formulary Medication 1,000 mg 07/13/22 12:00 07/13/22 12:29 Garlic PO Not Given DAILY [facility] Ondansetron HCl 4 mg 07/12/22 22:20 07/13/22 02:46 Ondansetron Hcl/Pf 4 Mg/2 Ml Sdv IVP 4 mg Q6H PRN Administration Nausea / Vomiting Simvastatin 40 mg 07/13/22 21:00 Simvastatin 40 Mg Tablet PO BEDTIME [facility] Sodium Chloride 1 syr 07/12/22 19:59 0.9% Sodium Chloride 10 Ml Disp.Syrin IVF PRN PRN To flush IV Tramadol HCl 50 mg 07/13/22 11:49 Tramadol Hcl 50 Mg Tablet PO TID PRN Pain Warfarin Sodium 6 mg 07/13/22 12:00 07/13/22 12:27 Warfarin Sodium 3 Mg Tablet PO 6 mg DAILY MITZI Administration Warfarin Sodium 1 mg 07/14/22 09:00 Warfarin Sodium 1 Mg Tablet PO EVERY OTHER DAY [facility] Medications Given This Visit: Medications at Discharge (Home Meds & RX) tramadol 50 mg tablet 50 mg PO TID PRN pain #90 tabs 04/30/22 garlic 1,000 mg capsule 1,000 mg PO QDAY 05/19/22 metoprolol tartrate 50 mg tablet (Lopressor) 25 mg PO BID 05/19/22 omega-3 fatty acids-fish oil 360 mg-1,200 mg capsule (Fish Oil) 2 cap PO BID 05/19/22 simvastatin 40 mg tablet 40 mg PO BEDTIME #90 tabs 06/04/22 lorazepam 1 mg tablet (Ativan) 1 mg PO BEDTIME #30 tabs 06/15/22 sildenafil 50 mg tablet 50 mg PO QDAY PRN sexual activity #30 tabs 06/16/22 warfarin 1 mg tablet 1 mg PO QDAY #30 tabs 06/16/22 warfarin 6 mg tablet 6 mg PO .QD #30 tabs 06/16/22 aspirin 81 mg chewable tablet 81 mg PO DAILYWM 30 days #30 tabs 07/13/22 Discharge Plan Discharge Discharge Orders: Discharge Patient (ONCE); Ordered 07/13/22 Ordered By: ALEJANDRO OAKLEY Activity Restrictions/Additional Instructions: Activity as tolerated Regular diet Wear holter monitor x [address] Johnson YOU HAVE A FOLLOW UP APPOINTMENT WITH DR. JOHNSON ON WEDNESDAY, June AT 3PM. SHOULD YOU HAVE ANY QUESTIONS OR NEED TO RESCHEDULE YOU CAN CONTACT THEIR OFFICE AT [phone]. Instructions: Transient Ischemic Attack (GEN) Patient Disposition: HOME SELF-CARE Prescriptions: New aspirin 81 mg Tablet,Chewable 81 mg PO DAILYWM 30 Days Qty: 30 0RF Continued tramadol 50 mg tablet 50 mg PO TID PRN (Reason: pain) Qty: 90 2RF lorazepam [Ativan] 1 mg tablet 1 mg PO BEDTIME Qty: 30 2RF metoprolol tartrate [Lopressor] 50 mg tablet 25 mg PO BID omega-3 fatty acids-fish oil [Fish Oil] 360-1,200 mg capsule 2 cap PO BID garlic 1,000 mg capsule 1,000 mg PO QDAY simvastatin 40 mg tablet 40 mg PO BEDTIME Qty: 90 1RF warfarin 1 mg tablet 1 mg PO QDAY Qty: 30 3RF Rx Instructions: on odd numbered days warfarin 6 mg tablet 6 mg PO .QD Qty: 30 2RF sildenafil 50 mg tablet 50 mg PO QDAY PRN (Reason: sexual activity) Qty: 30 2RF Rx Instructions: administer 30 minutes to 4 hours before activity Did you review [place] [employer] for ALL controlled substances?: No Discussed opioids are addictive and Narcan is available by prescription or from pharmacy.: No Condition: Good
[2022-07-13] MEDS ORDERED: ATIVAN PO SCH (21:00)
[2022-07-13] MEDS ORDERED: OMEGA PO SCH (21:00)
[2022-07-13] MEDS ORDERED: ZOCOR PO SCH (21:00)
[2022-07-13] MEDS ORDERED: OMEGA-3 FISH OIL PO SCH (21:00)
[2022-07-13] MEDS ORDERED: [UNRECOGNIZED DRUG - OTHER] PO SCH (21:00)
[2022-07-13] MEDS ORDERED: LOPRESSOR PO SCH ×2 (21:00)
[2022-07-14] MEDS ORDERED: ASPIRIN CHEWABLE PO SCH (08:30)
[2022-07-14] MEDS ORDERED: COUMADIN PO SCH (09:00)
--- NOTE | 2022-07-15 09:09 | ECHO2D ---
Date of Exam: 07/13/2022 Ordering Physician: DR. DOLORES REYNOLDS Room #: SCU3 Reason for Echo: CVA, HTN, A-FIB M-Mode Normal Adult Results LV Dimensions Normal Adult Results AoV Opening excursions >1.6 >1.6 LVEDD-base- 3.5-5.8 5.3 Ao root dimensions 2.0-3.7 3.4 LVESD-base- 3.1-4.6 L. Atrium dimensions 1.9-3.8 4.0 Post. Wall thickness 0.8-1.1 1.2 IV septum (thickness) 0.7-1.2 1.3 Post. Wall excursion 0.72-1.3 NORMAL Septal motion NORMAL Systolic motion R. Ventricular cavity 1.5-2.0 NORMAL LVEF 60% 59% Paradoxical septal wall motion NORMAL 2-D : 2-D M Mode Echocardiogram was performed using apical four chamber and left parasternal long and short axis views. Mitral, tricuspid and aortic valves appear to be normal. Contractility of the left ventricle seems to be normal, so is the cavity size. ENLARGED LEFT ATRIAL CAVITY SIZE. Aortic root appears to be normal. There is no pericardial effusion. There is no thrombus noted in the left ventricle or left atrial cavity. M-MODE: MV: NORMAL AV: NORMAL TV: NORMAL PV: CHAMBER SIZE: ENLARGED LEFT ATRIAL CAVITY WALL MOTION: NORMAL PERICARDIUM: NORMAL INTERPRETATION: 1. LEFT VENTRICLE HYPERTROPHY/ ENLARGED LEFT ATRIAL CAVITY 2. VALVES--NORMAL 3. NORMAL LEFT VENTRICLE CAVITY SIZE AND CONTRACTILITY UNCHANGED 05/2021 [facility]
--- NOTE | 2022-07-16 13:43 | HOLTER ---
PATIENT INFORMATION AND COMMENTS Attending Physician: DR. DOLORES REYNOLDS Indications: CVA, A-FIB __ Patient Medications: ASA, ATIVAN, LOPRESSOR, SIMVASTATIN, TRAMADOL, WARFARIN __ Pre-procedure Summary: Protocol: Standard Heart Rate Started: 07/13/2022 Minimum: 50 BPM Weight: 183 LBS Ended: 07/14/2022 Maximum: 120 BPM Height: 70" Duration: 48 HOURS Average: 70 BPM _ INTERPRETATIONS/OBSERVATIONS: 1. BASIC RHYTHM: SINUS, RATE 50 BPM TO 120 BPM, AVERAGE 70 BPM 2. INFREQUENT ISOLATED PAC'S AND PVC'S 3. NO ST-T WAVE CHANGES FROM BASELINE 4. NO PAUSES GREATER THAN 2.0 SECONDS 5. DIARY NOT AVAILABLE REVIEWED 48 HOURS- HOLTER MONITOR MTDD
== END 2022-07-13 14:20 | disposition home or self-care (01) | DRG 69 ==
LOC: ED 19:47 → SCU 22:18
PROVIDERS: ADMIT Hospitalist; ATTEND Nurse Practitioner Family
DX: R29.810 Facial weakness; R29.90 Unspecified symptoms and signs involving the nervous system; N18.32 Chronic kidney disease, stage 3b; I48.91 Unspecified atrial fibrillation; R47.1 Dysarthria and anarthria; I49.9 Cardiac arrhythmia, unspecified; R20.2 Paresthesia of skin; Z79.899 Other long term (current) drug therapy; R13.10 Dysphagia, unspecified; Z79.01 Long term (current) use of anticoagulants; E13.610 Other specified diabetes mellitus with diabetic neuropathic arthropathy; G45.9 Transient cerebral ischemic attack, unspecified; E53.8 Deficiency of other specified B group vitamins; C61 Malignant neoplasm of prostate